=== PATIENT | female | born 1965 | race Caucasian/White ===

== ENCOUNTER → 2016-10-19 | Outpatient (CLI) | payer BC ==
[~2016-10-19] MED LIST: CLIN1GEL41 TOP
--- NOTE | 2016-10-19 16:00 | MAMMOGRAPHY REPORT ---
BILATERAL DIGITAL SCREENING MAMMOGRAM TOMOSYNTHESIS WITH CAD: 10/19/2016 CLINICAL HISTORY: Routine screening. Patient has no complaints. TECHNIQUE: Breast tomosynthesis in addition to standard 2D mammography was performed. Current study was also evaluated with a Computer Aided Detection (CAD) system. COMPARISON: Comparison is made to exams dated: 10/19/2015 mammogram, 10/11/2015 mammogram, 10/08/2014 m ammogram, 10/07/2013 mammogram, 10/04/2012 mammogram, and 09/29/2011 mammogram - [facility] nter. BREAST COMPOSITION: The tissue of both breasts is extremely dense, which lowers the sensitivity of m ammography. FINDINGS: There are diffuse bilateral benign-appearing microcalcifications, and stable nodularity mariel aterally. No suspicious spiculated or irregular mass, architectural distortion or cluster of [place] rocalcifications is seen. IMPRESSION: ACR BI-RADS CATEGORY 1: NEGATIVE There is no mammographic evidence of malignancy. A 1 year screening mammogram is recommended. The pa tient will receive written notification of the results. Approximately 10% of breast cancers are not detected with mammography. A negative mammographic report should not delay biopsy if a clinically suggestive mass is present. Puja Espinoza M.D. ay/:10/19/2016 14:03:41 Matcher: Eliane HOFF(Nellie)(M), [facility] letter sent: Normal 1/2 BI-RADS Code: ACR BI-RADS Category 1: Negative
== END | disposition home or self-care (01) ==
LOC: C.MAMM 11:05
PROVIDERS: ATTEND Obstetrics & Gynecology
DX: Z12.31 Encounter for screening mammogram for malignant neoplasm of breast (principal)

== ENCOUNTER → 2016-10-31 | Outpatient (CLI) | payer BC ==
[2016-10-31 12:07] LABS: HEMATOCRIT 41.9 % (37-47); MEAN CELL VOLUME 93.1 fL (80-100); MEAN CORPUSCULAR HEMOGLOBIN 30.2 pg (25-34); MEAN CORPUSCULAR HGB CONC 32.5 g/dl (32-36); MEAN PLATELET VOLUME 10.9 fL (7.4-10.4); PLATELET COUNT 288 K/uL (130-400); WHITE BLOOD COUNT 5.43 K/uL (4.8-10.8)
[2016-10-31 12:49] LABS: BLOOD UREA NITROGEN 14 mg/dl (7-18); BUN/CREATININE RATIO 16.5 (10-20); CARBON DIOXIDE 26 mmol/L (21-32); CHLORIDE 108 mmol/L (98-107); CREATININE 0.85 mg/dl (0.60-1.20); GLUCOSE 86 mg/dl (70-99); POTASSIUM 4.1 mmol/L (3.5-5.1); SODIUM 141 mmol/L (136-145)
[2016-10-31 12:54] LABS: CHOLESTEROL 198 mg/dl (0-200); CHOLESTEROL/HDL RATIO 2.4; HDL CHOLESTEROL 83 mg/dl; LDL CHOLESTEROL CALCULATED 100 mg/dl; TRIGLYCERIDES 75 mg/dl (0-150); VERY LOW DENSITY LIPOPROT CALC 15 mg/dl
== END | disposition home or self-care (01) ==
LOC: C.LABPBG 09:16
PROVIDERS: ATTEND Family Medicine
DX: Z00.00 Encounter for general adult medical examination without abnormal findings (principal); Z11.59 Encounter for screening for other viral diseases

== ENCOUNTER → 2017-10-22 | Outpatient (CLI) | payer BC ==
--- NOTE | 2017-10-23 15:22 | MAMMOGRAPHY REPORT ---
BILATERAL DIGITAL SCREENING MAMMOGRAM TOMOSYNTHESIS WITH CAD: 10/22/2017 CLINICAL HISTORY: Routine screening. TECHNIQUE: The study was acquired using full field digital technology and interpreted from soft copy. Breast tomosynthesis in addition to standard 2D mammography was performed. Current study was also ev aluated with a Computer Aided Detection (CAD) system. COMPARISON: Comparison is made to exams dated: 10/19/2016 mammogram, 10/19/2015 mammogram, 10/11/2015 m ammogram, 10/08/2014 mammogram, 10/07/2013 mammogram, and 10/04/2012 mammogram - [facility] enter. BREAST COMPOSITION: The tissue of both breasts is extremely dense, which lowers the sensitivity of ma mmography. FINDINGS: There is a possible new small cluster of faint microcalcifications in the upper outer poste rior left breast, for which additional spot magnification views are recommended. An asymmetry in the slightly inferior posterior left breast on the MLO view could represent normal overlapping tissue al though additional spot compression tomosynthesis views and possible ultrasound are recommended. There are other stable diffuse benign-appearing round calcifications bilaterally. No other suspicious mass, architectural distortion or cluster of microcalcifications is seen. IMPRESSION: ACR BI-RADS CATEGORY 0: INCOMPLETE EVALUATION: NEED ADDITIONAL IMAGING EVALUATION The possible new small faint cluster of microcalcifications in the upper outer posterior left breast, and asymmetry in the inferior right breast on the MLO view need additional imaging evaluation. The patient will be called to schedule an appointment. Some breast cancers are not detected with mammography. A negative mammographic report should not duke y biopsy if a clinically suggestive mass is present. Puja Espinoza M.D. ay/:10/22/2017 16:05:30 Food Mixer Repairer: RT Regina(R)(M), [facility] letter sent: Addl Imaging 0 BI-RADS Code: ACR BI-RADS Category 0: Incomplete Evaluation: Need Additional Imaging Evaluation
== END | disposition home or self-care (01) ==
LOC: C.MAMM 12:19
PROVIDERS: ATTEND Family Medicine
DX: Z12.31 Encounter for screening mammogram for malignant neoplasm of breast (principal); R92.0 Mammographic microcalcification found on diagnostic imaging of breast; N64.89 Other specified disorders of breast

== ENCOUNTER → 2017-10-31 | Outpatient (CLI) | payer BC ==
--- NOTE | 2017-11-01 15:13 | MAMMOGRAPHY REPORT ---
BILATERAL DIGITAL DIAGNOSTIC MAMMOGRAM TOMOSYNTHESIS: 10/31/2017 CLINICAL HISTORY: Callback from screening mammogram for left breast calcifications and right breast a symmetry. TECHNIQUE: The study was acquired using full field digital technology and interpreted from soft copy. Breast tomosynthesis in addition to standard 2D mammography was performed. Spot magnification left CC and MLO views and spot compression right MLO 2D and tomosynthesis images and full right MLO tomosy nthesis images were obtained. COMPARISON: Comparison is made to exams dated: 10/22/2017 mammogram, 10/19/2016 mammogram, 10/19/2015 m ammogram, 10/11/2015 mammogram, 10/14/2014 mammogram, and 10/08/2014 mammogram - [facility] enter. BREAST COMPOSITION: The tissue of both breasts is extremely dense, which lowers the sensitivity of ma mmography. FINDINGS: The previously described asymmetry seen within the right inferior breast middle depth on the MLO view effaces to a baseline appearance on the additional images. Normal fibroglandular tissue is seen in this region, without evidence of a suspicious mass, architectural distortion, or other suspicious fin ding seen. Spot magnification views of the left breast demonstrate a small 2 mm cluster of amorphous and punctate calcifications within the left upper outer quadrant. The calcifications appear similar to other calcifications seen scattered throughout the left breast; additionally, the calcifications do not appear significantly changed compared to the 2016 exam and possibly 2015 exam. The calcificat ions are probably benign and likely represent fibrocystic changes. IMPRESSION: ACR-BI-RADS CATEGORY 3: PROBABLY BENIGN 1. Small 2 mm cluster of calcifications within the left upper outer quadrant is probably benign and likely represents fibrocystic changes. Recommend follow-up diagnostic tomosynthesis mammograms of th e left breast in 6 months to confirm stability. 2. Right breast asymmetry effaces on the additional spot compression views, and is probably benign a nd likely represents normal fibroglandular tissue. Recommend follow-up diagnostic tomosynthesis mamm ograms and possible targeted ultrasound of the right breast in 6 months to confirm stability. A follow-up mammogram in 6 months is recommended to demonstrate stability.(05/02/2018) The patient h as been verbally notified of the results. Some breast cancers are not detected with mammography. A negative mammographic report should not duke y biopsy if a clinically suggestive mass is present. Alexandria Yanez M.D. ah/:10/31/2017 14:33:53 Production Shift Supervisor: Jhoana Thomas, [facility] letter sent: Follow Up Recommended 3 BI-RADS Code: ACR-BI-RADS Category 3: Probably Benign
== END | disposition home or self-care (01) ==
LOC: C.MAMM 13:59
PROVIDERS: ATTEND Family Medicine
DX: R92.0 Mammographic microcalcification found on diagnostic imaging of breast (principal); N64.89 Other specified disorders of breast